=== PATIENT | female | born 1990 | race Two or more races ===

== ENCOUNTER 2020-05-15 19:44 | Emergency (ER) | payer OTHER ==
[~2020-05-15] VITALS: Ht 152.4 cm; Wt 49.0 kg
[2020-05-15] MEDS ORDERED: LIDOCAINE HCL 1% 20 ML VIAL TP ONE (20:15)
[2020-05-15] MEDS ORDERED: MORPHINE SULFATE 2 MG/1 ML DISP.SYRIN IV ONE (20:15)
[2020-05-15] MEDS ORDERED: IV NORMAL SALINE 1000 ML BAG IV ONE (20:15)
[2020-05-15] MEDS ORDERED: ONDANSETRON 4 MG/2 ML VIAL IV ONE (20:15)
[2020-05-15] MEDS ORDERED: LIDOCAINE HCL 1% 20 ML VIAL ONE (20:17)
[2020-05-15] MEDS ORDERED: ONDANSETRON 4 MG/2 ML VIAL ONE (20:18)
[2020-05-15] MEDS ORDERED: MORPHINE SULFATE 4 MG/1 ML DISP.SYRIN ONE (20:18)
--- NOTE | 2020-05-15 20:18 | NUR ---
CALLED [facility], SPOKE TO RESCUE BOAT OPERATOR [id number] WHOM TOOK REPORT AND STSTED SHE DISPATCHED A UNIT.
[2020-05-15 20:31] LABS: BASOPHILS % (AUTO) 0.5 % (0.0-2.0); EOSINOPHILS # (AUTO) 0.2 K/uL (0.0-0.7); EOSINOPHILS % (AUTO) 1.5 % (0.0-7.0); HEMOGLOBIN 13.5 g/dL (10.9-14.3); LYMPHOCYTES % (AUTO) 36.7 % (20.5-51.5); MEAN CORPUSCULAR HEMOGLOBIN 28.4 uug (24.7-32.8); MEAN CORPUSCULAR HGB CONC 33 g/dL (32.3-35.6); MEAN CORPUSCULAR VOLUME 85.9 fL (75.5-95.3); MONOCYTES # (AUTO) 0.6 K/uL (2.0-10.0); MONOCYTES % (AUTO) 5.3 % (0.0-11.0); PLATELET COUNT (AUTO) 206 K/uL (179-408); RED BLOOD CELL COUNT(AUTO) 4.77 MIL/uL (3.63-4.92); WHITE BLOOD COUNT (AUTO) 10.8 K/uL (3.8-11.8)
[2020-05-15] MEDS ORDERED: IOHEXOL 300MG/ML 100 ML INFUS..BTL ONE (20:35)
[2020-05-15] MEDS ORDERED: SWABABLE VALVE TRANSFER SET EA MC ONE (20:35)
[2020-05-15] MEDS ORDERED: IV NORMAL SALINE 250 ML IV ONE (20:35)
[2020-05-15 20:37] LABS: CREATININE 0.9 mg/dL (0.6-1.3); POTASSIUM 3.2 mmol/L (3.5-5.1)
[2020-05-15 20:43] LABS: BILIRUBIN,DIRECT 0.2 mg/dL (0.0-0.2); TOTAL PROTEIN, SERUM 7.6 g/dL (6.4-8.2)
--- NOTE | 2020-05-15 20:52 | NUR ---
[facility] at bedside for interrogation.
--- NOTE | 2020-05-15 21:01 | NUR ---
Report given to WALKER Strong for continuation of care. Patient will be transported to CT for scan.
--- NOTE | 2020-05-15 21:31 | NUR ---
pt back from CT
--- NOTE | 2020-05-15 21:35 | NUR ---
[facility] at bedside for interrogation
--- NOTE | 2020-05-15 23:08 | NUR ---
IV removed. Catheter intact and site benign. Pressure and 4x4 gauze applied to site. No bleeding noted.
--- NOTE | 2020-05-15 23:15 | NUR ---
Patient discharged to home in stable condition. Written and verbal after care instructions given. Patient verbalizes understanding of instructions. Stressed follow up or return to ER for worsening s/s. aa/ox4. able to speak in complete sentences in stable condition respirations even and unlabored no s/s acute neuro deficits all belongings with pt ambulatory with steady gait
[2020-05-15 23:53] VITALS: BP 106/55
== END 2020-05-15 23:15 | disposition home or self-care (01) ==
LOC: ER 19:44 → EDBD 19:44 → ER 23:15
DX: S01.01XA Laceration without foreign body of scalp, initial encounter (principal); S09.90XA Unspecified injury of head, initial encounter; V49.88XA Car occupant (driver) (passenger) injured in other specified transport accidents, initial encounter; Y92.411 Interstate highway as the place of occurrence of the external cause; S20.219A Contusion of unspecified front wall of thorax, initial encounter; S60.221A Contusion of right hand, initial encounter; S40.212A Abrasion of left shoulder, initial encounter; S50.312A Abrasion of left elbow, initial encounter; S80.212A Abrasion, left knee, initial encounter; S70.312A Abrasion, left thigh, initial encounter; S80.812A Abrasion, left lower leg, initial encounter; S80.811A Abrasion, right lower leg, initial encounter; S40.211A Abrasion of right shoulder, initial encounter; S00.412A Abrasion of left ear, initial encounter; Z90.49 Acquired absence of other specified parts of digestive tract; R41.3 Other amnesia
CPT/HCPCS: 12002; 36415; 70450; 71260; 72125; 73130; 74177; 80048; 80076; 85025; 85730; 86850; 86900; 86901; 93005; 96374; 96375; 99285; J2270; J2405; J3490; Q9967; A4663; J7030; J7050

== ENCOUNTER 2021-03-05 03:13 | Emergency (ER) | payer OTHER ==
[~2021-03-05] VITALS: Ht 152.4 cm; Wt 49.9 kg
--- NOTE | 2021-03-05 03:14 | NUR ---
Pt. BIB [facility] 88 d/t fentanyl OD. Pt received narcan prior to being picked up by [facility]. Pt A/O x4, no SOB or labored breathing, afebrile. No c/o chest pain/pressure. No GI/ distress. Bed in lowest position for safety precautions.
--- NOTE | 2021-03-05 03:16 | NUR ---
Marilyn Xavier at bedside, MSE in progress.
--- NOTE | 2021-03-05 03:26 | NUR ---
MIGEL garcia [id number] at bedside.
[2021-03-05] MEDS ORDERED: NALO4SPR NS (04:02)
--- NOTE | 2021-03-05 04:28 | NUR ---
Patient is resting comfortably in bed with eyes closed. Vitals stable.
--- NOTE | 2021-03-05 05:40 | NUR ---
Patient discharged to home in stable condition. A/O x4, no SOB or labored breathing. Afebrile. Clear speech, complete sentences. No c/o pain/discomfort. IV site removed. Written and verbal after care instructions given. Patient verbalizes understanding of instructions. Stressed follow up or return to ER for worsening s/s. Steady gait. Picked up by significant other.
[2021-03-05 06:16] VITALS: BP 101/59
== END 2021-03-05 05:42 | disposition home or self-care (01) ==
LOC: ER 03:15
DX: T40.411A Poisoning by fentanyl or fentanyl analogs, accidental (unintentional), initial encounter (principal); Y92.9 Unspecified place or not applicable; Z88.0 Allergy status to penicillin; F17.210 Nicotine dependence, cigarettes, uncomplicated
CPT/HCPCS: A4663